=== PATIENT | female | born 1995 | race Caucasian/White ===

== ENCOUNTER 2021-01-05 00:30 | Emergency (ER) | payer OTHER ==
[~2021-01-05] VITALS: Ht 167.6 cm; Wt 72.6 kg
[~2021-01-05 00:30] MED LIST: BACTRIM DS TAB1 EACH PO; BENTYL20 MG PO; CARBAMAZEPINE200 M3; CIPROFLOXACIN500 M1 PO; CLEOCIN HCL300 MG PO; COLACE100 MG PO; FLEXERIL PO; HYDROXYZINE HCL25 M1; LOXAPINE10 MG PO; MISC; NAPROSYN500 MG PO; NOHOMEMEDICATIONS; NORCO 5-325 TA1 EACH PO; PREDNISONE 10 M10 M1; VENTOLIN17 GM; VICODIN 5-5001 EACH PO
[2021-01-05] MEDS ORDERED: PNV 29-1 TABLE1 EACH PO (00:53)
[2021-01-05] MEDS ORDERED: TYLENOL325 M1 PO (00:53)
[2021-01-05 01:53] LABS: URINE BILIRUBIN NEGATIVE (Negative); URINE BLOOD NEGATIVE (Negative); URINE CLARITY CLEAR; URINE COLOR YELLOW; URINE GLUCOSE-RANDOM NEGATIVE (Negative); URINE KETONES 1+ (Negative); URINE LEUKOCYTES-REFLEX NEGATIVE (Negative); URINE NITRITE-REFLEX NEGATIVE (Negative); URINE PROTEIN NEGATIVE (Negative); URINE SPECIFIC GRAVITY 1.025 (1.005-1.030); URINE UROBILINOGEN 0.2 E.U./dl (0.2-1.0)
[2021-01-05 04:06] VITALS: BP 104/52
== END 2021-01-05 04:06 | disposition home or self-care (01) ==
LOC: M.ERS 00:30
PROVIDERS: Personal Emergency Response Attendant
DX: O21.8 Other vomiting complicating pregnancy (principal); O99.511 Diseases of the respiratory system complicating pregnancy, first trimester; O99.331 Smoking (tobacco) complicating pregnancy, first trimester; Z90.49 Acquired absence of other specified parts of digestive tract; Z88.1 Allergy status to other antibiotic agents; Z3A.01 Less than 8 weeks gestation of pregnancy